=== PATIENT | female | born 1995 | race Two or more races ===

== ENCOUNTER 2021-08-07 15:46 | Emergency (ER) | payer OTHER ==
[~2021-08-07] VITALS: Ht 160 cm; Wt 55.8 kg
== END 2021-08-07 21:09 | disposition home or self-care (01) ==
LOC: ER 15:46
DX: R10.2 Pelvic and perineal pain (principal); Z32.01 Encounter for pregnancy test, result positive; Z3A.08 8 weeks gestation of pregnancy; O26.892 Other specified pregnancy related conditions, second trimester

== ENCOUNTER → 2021-08-07 | Emergency (ER) | payer OTHER | END | disposition left against medical advice (07) | LOC: ER 21:34 | DX: Z53.21 Procedure and treatment not carried out due to patient leaving prior to being seen by health care provider (principal) ==

== ENCOUNTER 2022-02-13 12:05 | Outpatient (CLI) | payer OTHER | END 2022-02-13 12:06 | disposition home or self-care (01) | LOC: LAB 12:05 | PROVIDERS: ATTEND Specialist | DX: Z34.80 Encounter for supervision of other normal pregnancy, unspecified trimester (principal) ==

== ENCOUNTER 2022-02-26 03:58 | Inpatient (IN) | payer OTHER ==
[~2022-02-26] VITALS: Ht 160 cm; Wt 64.4 kg
[2022-02-26] MEDS ORDERED: PRENATAL TABLE1 EAC1 PO (04:01)
== END 2022-02-28 17:28 | disposition home or self-care (01) | DRG 798 ==
LOC: LDR 03:58 → OB/GYN 03:58
PROVIDERS: ADMIT Specialist; ATTEND Specialist
PROC: 10E0XZZ Delivery of Products of Conception, External Approach (ICD-10-PCS; principal; 2022-02-26)
PROC: 4A1HXCZ Monitoring of Products of Conception, Cardiac Rate, External Approach (ICD-10-PCS; 2022-02-26)
PROC: 0UB70ZZ Excision of Bilateral Fallopian Tubes, Open Approach (ICD-10-PCS; 2022-02-27)
DX: O80 Encounter for full-term uncomplicated delivery (principal); Z37.0 Single live birth; Z3A.37 37 weeks gestation of pregnancy; Z30.2 Encounter for sterilization; Z20.822 Contact with and (suspected) exposure to COVID-19